=== PATIENT | female | born 1990 | race African-American/Black ===

== ENCOUNTER 2020-03-12 10:09 | Outpatient (CLI) | payer OTHER, MEDICAID, SELFPAY ==
--- NOTE | ~2020-03-12 | US_ITS ---
EXAMINATION: US OB /maternal detail DATE: 03/12/2020 11:07 INDICATION: survey TECHNIQUE: Multiple obstetric sonographic images performed. FINDINGS: No prior studies for comparison. There is a single living fetus in breech presentation. The placenta is posterior without placenta pr evia. Amniotic fluid volume is normal. cardiac activity and movement is noted with a heart rate of 152 beats per minute. The following anatomy was identified as normal: 4 chamber heart 3 vessel cord cord insertion kidneys urinary bladder stomach spine diaphragm ventricles cisterna magna cerebellum The following biometric data were obtained: BPD: 46mm corresponds to gestational age 20 weeks 0 days. Head circumference: 173 mm corresponds to gestational age 19 weeks 6 days. Abdominal circumference: 148 mm corresponds to gestational age 20 weeks days. Femur length: 31 mm corresponds to gestational age 19 weeks 5 days. Head circumference to abdominal circumference ratio: 1.17 (normal range for expected gestational age is 1.08-1.25). Estimated weight: 320 grams +/- 48 grams using Hadlock method. IMPRESSION: 1: Single living intrauterine with an estimated gestational age of 20weeks 0days by current ultrasound measurements, with an EDC of 07/30/2020 in breech presentation. 2. Normal survey. Reviewed, dictated and finalized at location A. IMPRESSION: 1: Single living intrauterine with an estimated gestational age of 20 weeks 0days by current ultrasound measurements, with an EDC of 07/30/2020 in br eech presentation. 2. Normal survey.
== END 2020-03-12 10:10 | disposition home or self-care (01) ==
LOC: ANHIMG 10:25
PROVIDERS: PCP Family Medicine; Visit Provider Obstetrics & Gynecology Gynecology
DX: Z36.89 Encounter for other specified antenatal screening (principal); Z3A.20 20 weeks gestation of pregnancy
CPT/HCPCS: 76805

== ENCOUNTER 2020-04-25 15:51 | Outpatient (CLI) | payer OTHER, MEDICAID, SELFPAY ==
--- NOTE | ~2020-04-25 | US_ITS ---
EXAMINATION: US OB follow up DATE: 04/25/2020 16:34 INDICATION: Size greater than dates during second trimester TECHNIQUE: Real-time ultrasound of the pelvis was performed. The interpreting radiologist was not pre sent for the study. COMPARISON: 03/12/2020 FINDINGS: There is a single living fetus in breech presentation. The placenta is posterior and 4.6 cm from the internal cervical os. cardiac activity and movement are noted. heart rate is 155 beats per minute (bpm). The amniotic fluid index is 17.6 cm which is normal. The following biometric data were obtained: Biparietal diameter (BPD): 6.4 cm; head circumference (HC): 23.4 cm; abdominal circumference (AC): 23 .0 cm; femur length (FL): 5.0 cm. The head circumference to abdominal circumference ratio is greater than two standard deviations below the mean. These measurements are otherwise concordant. Estimated weight is 1010 g +/- 151 g, which correlates with the 15th percentile when 07/20/2020 is used as estimated date of delivery. As single measurements, these parameters are each equal to the following estimated gestational ages w ith ranges of +/- 2 standard deviations: BPD: 25 weeks 6 days +/- 2 weeks 1 days. HC: 25 weeks 3 days +/- 2 weeks 0 days. AC: 27 weeks 3 days +/- 2 weeks 1 days. FL: 27 weeks 0 days +/- 2 weeks 1 days. estimated gestational age based solely on measurements from this exam is 26 weeks 3 days +/- 1 weeks 6 days. IMPRESSION: 1. Single living fetus in breech presentation. 2. Estimated weight is 1010 g +/- 151 g, which correlates with the 15th percentile when 020 is used as estimated date of delivery. 3. Head circumference to abdominal circumference ratio greater than two standard deviations below the mean. Reviewed, dictated and finalized at location A. IMPRESSION: 1. Single living fetus in breech presentation. 2. Estimated weight is 1010 g +/- 151 g, which correlates with the 15th p ercentile when 07/20/2020 is used as estimated date of delivery. 3. Head circumference to abdominal circumference ratio greater than two standar d deviations below the mean.
== END 2020-04-25 15:52 | disposition home or self-care (01) ==
LOC: ANHIMG 15:57
PROVIDERS: PCP Family Medicine; Visit Provider Obstetrics & Gynecology Gynecology
DX: Z36.9 Encounter for antenatal screening, unspecified (principal); Z3A.26 26 weeks gestation of pregnancy
CPT/HCPCS: 76816

== ENCOUNTER → 2020-06-27 14:35 | Outpatient (CLI) | payer OTHER, MEDICAID, SELFPAY ==
--- NOTE | ~2020-06-27 | US_ITS ---
EXAMINATION: US OB follow up DATE: 06/27/2020 15:07 INDICATION: Size greater than dates during third trimester TECHNIQUE: Real-time ultrasound of the pelvis was performed. The interpreting radiologist was not pre sent for the study. COMPARISON: None. FINDINGS: There is a single living fetus in vertex presentation. The placenta is posterior. car diac activity and movement are noted. heart rate is 143 beats per minute (bpm). The amnio tic fluid index is 11.5 cm which is normal. The following biometric data were obtained: Biparietal diameter (BPD): 8.9 cm; head circumference (HC): 31.9 cm; abdominal circumference (AC): 33 .3 cm; femur length (FL): 6.8 cm. These measurements are concordant. Estimated weight is 1944 g +/- 441 g, which correlates with the 48th percentile when 07/20/2020 is used as estimated date of delivery. As single measurements, these parameters are each equal to the following estimated gestational ages w ith ranges of +/- 2 standard deviations: BPD: 36 weeks 2 days ( 33 weeks 1 days - 39 weeks 4 days). HC: 36 weeks 0 days ( 33 weeks 0 days - 39 weeks 0 days). AC: 37 weeks 2 days ( 34 weeks 2 days - 40 weeks 2 days). FL: 35 weeks 0 days ( 32 weeks 0 days - 37 weeks 6 days). estimated gestational age based solely on measurements from this exam is 36 weeks 1 days +/- 2 weeks 4 days. IMPRESSION: 1. Single living fetus in vertex presentation. 2. Estimated weight is 1944 g +/- 441 g, which correlates with the 48th percentile when 020 is used as estimated date of delivery. 3. Normal amniotic fluid index. Reviewed, dictated and finalized at location A. IMPRESSION: 1. Single living fetus in vertex presentation. 2. Estimated weight is 1944 g +/- 441 g, which correlates with the 48th p ercentile when 07/20/2020 is used as estimated date of delivery. 3. Normal amniotic fluid index.
== END ==
PROVIDERS: Visit Provider Nurse Practitioner
DX: O36.63X0 Maternal care for excessive fetal growth, third trimester, not applicable or unspecified (principal); Z3A.36 36 weeks gestation of pregnancy
CPT/HCPCS: 76816

== ENCOUNTER 2020-07-16 13:12 | Observation (INO) | payer OTHER, MEDICAID, SELFPAY ==
--- NOTE | 2020-07-16 13:30 | OBADM ---
This patient, Renae Rosario, admitted to the OB room OB Post 116 for observation. Patient/family oriented to hospital policies and general routines including ID bracelet, bed and alarms, visiting hours, pain management, procedures, bathroom and other care routines, personal items, smoking policy, room service/diet, and visiting hours. Patient/Family are encouraged to report perceived risks to care and to ask questions if they do not understand what they are told or what they should do.
[2020-07-16 13:31] VITALS: BP 140/84; PULSE 96
[2020-07-16 13:46] VITALS: BP 144/87; PULSE 105
[2020-07-16 14:01] VITALS: BP 135/80; PULSE 104
[2020-07-16 14:16] VITALS: BP 125/85; PULSE 105
--- NOTE | 2020-07-21 14:16 | PM.OBTRLD ---
OB - Triage/Final Diagnosis Visit Information Reason for evaluation: threatened labor
== END 2020-07-16 15:30 | disposition home or self-care (01) ==
PROVIDERS: Admitting Provider Obstetrics & Gynecology Gynecology; Visit Provider Obstetrics & Gynecology Gynecology
DX: O47.9 False labor, unspecified (principal); Z3A.00 Weeks of gestation of pregnancy not specified
CPT/HCPCS: G0378; G0379

== ENCOUNTER 2020-07-17 03:50 | Inpatient (IN) | payer OTHER, MEDICAID, SELFPAY ==
[2020-07-17] VITALS (59 sets, daily range): BP systolic 100–158; BP diastolic 52–95; PULSE 67–156; RESP 16–20; TEMP 36.4–36.8; O2SAT 75–100; BMI 36.8
--- NOTE | 2020-07-17 03:50 | LDADM ---
This patient, Renae Rosario, was admitted to Labor/Delivery/Recovery 107 on 07/17/20 at 03:50. Plans for labor, pain management and were discussed with patient. Patient/family oriented to hospital policies and general routines including ID bracelet, bed and alarms, visiting hours, pain management, procedures, bathroom and other care routines, personal items, smoking policy, room service/diet and guest tray routines, infant security routines, and visiting hours. Patient/Family are encouraged to report perceived risks to care and to ask questions if they do not understand what they are told or what they should do. See OBIX for further documentation.
--- NOTE | 2020-07-17 04:22 | WPDOBADMIT ---
Obstetrics - Admit Note Admission Note: record reviewed. No pertinent additions to the history and/or any subsequent changes in the physical findings that are not consistent with the expected course of the were found. Additions to the history and/or subsequent changes in the physical findings follow. None.Here in active labor. Patient 8 cm with BBOW on arrival. Trying to place epidural now.
[2020-07-17 04:33] LABS: Basophils Percent Auto 0.4 % (0.2-1.2); Eosinophils Absolute Auto 0.1 K/mm3 (0-0.3); Hematocrit 42.5 % (37.0-47.0); Hemoglobin 15.7 g/dL (12.0-15.0); Immature Granulocyte Absolute 0.05 K/mm3 (0.00-0.031); Immature Granulocyte Percent A 0.5 % (0-0.5); Immature Platelet Fraction Pct 11.1 % (0.9-11.2); Lymphocytes Absolute Auto 2.18 K/mm3 (0.9-3.2); Lymphocytes Percent Auto 19.7 % (18.3-44.2); Mean Corpuscular HGB Conc 36.9 g/dl (32-36); Mean Corpuscular Hemoglobin 31.5 pg (26-34); Mean Corpuscular Volume 85.3 fl (80-100); Mean Platelet Volume 12.3 fl (7.4-10.4); Monocytes Percent Auto 8.7 % (2.6-8.5); Neutrophils Absolute Auto 7.8 K/mm3 (1.3-6.7); Neutrophils Percent Auto 69.7 % (45.5-73.1); Platelet Count Result 156 k/mm3 (150-375); Red Blood Count 4.98 M/mm3 (4.2-5.4); Red Cell Distribution Width 13.5 % (11.5-14.5); White Blood Count 11.1 K/mm3 (4.5-10.0)
--- NOTE | 2020-07-17 04:40 | P.PNOB_ITS ---
OB - PN: Subj Subjective Date/time seen: 07/17/20 04:40 Narrative: AROM with clear fluid Cervix /-2 OB - PN: Obj Data Labs CBC & Chem 7: 07/17/20 04:12 OB - PN A/P Time Spent With Patient Time: Total time spent is greater than 50% in coordination of care (as do cumented) at patient's floor/unit and/or counseling patient:
--- NOTE | 2020-07-17 04:41 | WPDANESEPPF ---
Anes - Initial Pre Proc Eval Procedure: labor epidural Date/Time: 07/17/20 04:41 Surgeon: Doris Acosta MD Pre Op Diagnosis: labor pain Pre Op Diagnosis: Contractions Patient Data Age: 29 Gender: F Height: 1.73 m Weight: 110 kg Last Vital Signs Temp 36.8 C 07/17/20 04:09 Pulse 95 07/17/20 04:40 BP 134/77 07/17/20 04:40 Pulse Ox 100 07/17/20 04:35 Allergies Allergy/AdvReac Type Severity Reaction Status Date / Time No Known Allergies Allergy Verified 07/01/20 14:35 Home Medications Medication Instructions Recorded Confirmed Type PNV cmb#95-ferrous fumarate-FA 1 tablet PO DAILY 07/01/20 07/16/20 History [] ergocalciferol (vitamin D2) 1,250 mcg PO WEEKLY 07/01/20 07/16/20 History [Vitamin D2] Laboratory Tests 07/17/20 07/17/20 04:12 04:12 WBC Pending RBC Pending Hgb Pending Hct Pending MCV Pending MCH Pending MCHC Pending RDW Pending Plt Count Pending MPV Pending Immature Gran % (Auto) Pending Neut % (Auto) Pending Lymph % (Auto) Pending [place] % (Auto) Pending Eos % (Auto) Pending Baso % (Auto) Pending Lymph # (Auto) Pending [place] # (Auto) Pending Eos # (Auto) Pending Baso # (Auto) Pending Abs Immat Gran (auto) Pending Absolute Neuts (auto) Pending Absolute Nucleated RBC Pending Nucleated RBC % Pending RPR Pending Patient hx anesthesia problems: none Family hx anesthesia problems: none PMFSH Family History Family History (Updated 07/01/20 @ 14:37 by Zev Camarena RN) Other Unknown family medical history Social History Social History Substance use: never Spiritual care concerns: No Anes - Eval Final PreProcedure Day of Procedure 07/17/20 04:41 Patient weight: obese ASA classification: II Anesthesia type and monitoring: regional epidural Informed Consent: The patient's anesthetic plan and its attendant risks and benefits were discussed with the patient/family/POA. Questions were solicited and answers provided to the satisfaction of the patient/family/POA.
[2020-07-17] MEDS: LACTATED RINGERS 1,000 ML 125 ML IV CONT ×2 (04:42→04:43)
[2020-07-17 04:48] LABS: Large Platelets Present; Platelet Estimate Adequate (Adequate)
--- NOTE | 2020-07-17 05:04 | PC.NURSE ---
pt states she uses Medical Marijuana topical cream on knee.
[2020-07-17] MEDS: OXYTOCIN 30 UNITS/NS 500 ML 30 UNITS/500 ML BAG 999 UNITS IV CONT (06:23)
--- NOTE | 2020-07-17 06:28 | P.PCNOB_ITS ---
OB - Delivery Note Procedure Delivery date: 07/17/20 Procedure: Intrapartal events: None Induction method: none Delivery augmentation: rupture of membranes Delivery monitor: external FHT and external uterine Route of delivery: Laceration description: None Specimen: Yes (placenta marginal insertion) Estimated blood loss (mL): 200 Anesthesia type: Epidural Disposition: PACU [place] [facility] Weeks of gestation at delivery: 38 Infant gender: Male Weight (pounds): 7 Weight (ounces): 15 presentation: vertex Placenta delivery description: Spontaneous cord vessel description: 3 Vessels score one minute: 9 score five minutes: 9
--- NOTE | 2020-07-17 06:29 | PM.OBDSVD ---
DS: Admitting Diagnosis Admitting Diagnosis Admitting Diagnosis: labor 38 4/7 wk DS: Discharge Diagnosis Discharge Diagnosis (1) (normal spontaneous vaginal delivery): Code(s): O80 - Encounter for full-term uncomplicated delivery Status: Acute OB - DS: Summary OB Procedures : Ultrasound OB Procedures Intrapartum: Spontaneous Vag Delivery OB Procedures: : None Peripartum Data Infant Delivery Method: Natural Vaginal Laceration description: None complications: none Status at Discharge Functional status at discharge: independent ambulation Overall status at discharge: patient is progressing back to baseline Time Spent with Patient Time attestation: Total time spent providing and/or coordinating discharge services: DS: Data Data Completed and Pending Labs on day of discharge: Labs from last 24 hours 07/17/20 07/17/20 07/17/20 04:12 04:12 04:12 WBC 11.1 H RBC 4.98 Hgb 15.7 H Hct 42.5 MCV 85.3 MCH 31.5 MCHC 36.9 H RDW 13.5 Plt Count 156 MPV 12.3 H Immature Gran % (Auto) 0.5 Neut % (Auto) 69.7 Lymph % (Auto) 19.7 [place] % (Auto) 8.7 H Eos % (Auto) 1.0 Baso % (Auto) 0.4 Lymph # (Auto) 2.18 [place] # (Auto) 1.0 H Eos # (Auto) 0.1 Baso # (Auto) 0.0 Abs Immat Gran (auto) 0.05 H Absolute Neuts (auto) 7.8 H Absolute Nucleated RBC 0.0 Nucleated RBC % 0.0 Platelet Estimate Adequate Large Platelets Present % Immature Plt Fraction 11.1 RPR Pending Blood Type O Positive Antibody Screen Negative Discharge Plan Discharge Attending physician on discharge: Doris Acosta Discharging Clinician: Doris Acosta Anticipated Discharge Date/Time: 07/19/20 06:30 Patient Disposition: Home, Self-Care Activity: may shower and pelvic rest Diet: regular Patient Instructions: Antibiotic Form Stand Alone Forms: General Discharge Information Follow-up/Referrals: Doris Acosta MD [Physician] - 6 Weeks Discharge Medications: Continued ergocalciferol (vitamin D2) [Vitamin D2] 1,250 mcg (50,000 unit) Capsule 1,250 mcg PO WEEKLY RF: 0 PNV cmb#95-ferrous fumarate-FA [] 28 mg iron- 800 mcg Tablet 1 tablet PO DAILY RF: 0 Date of admission: 07/17/20 03:50 Primary Care Provider: UNKNOWN,DOCTOR Admitting Provider: Doris Acosta Attending physician on admission: Doris Acosta Condition: Stable Care Plan Goals: plans condoms for control
[2020-07-17] MEDS: OXYTOCIN 30 UNITS/NS 500 ML 30 UNITS/500 ML BAG 125 UNITS IV CONT (06:53)
[2020-07-17] MEDS: MULTIVIT/MIN/PREN/FOL AC/IRON TABLET 1 TAB PO (08:04)
[2020-07-17] MEDS: IBUPROFEN 600 MG TABLET PO ×2 (08:05→19:25)
--- NOTE | 2020-07-17 09:50 | PC.NURSE ---
Patient transferred to post room #282 per wheelchair from labor and delivery. Support person present. Oriented to unit, room, information board, rooming in, admission packet and security measures. Patient verbalizes understanding.
[2020-07-17 10:54] LABS: Rapid Plasma Reagin Non-Reactive (NonReactive)
--- NOTE | 2020-07-17 11:20 | PC.NURSE ---
Consulted with patient, mother reports she wishes to breast/bottle feed for a few days, as she wants infant to receive colostrum and will switch to formula. Discussed stimulation of milk supply Reviewed feeding cues, frequencies, duration of feedings, feeding elimination flow sheet, and signs of adequate intake. Demonstrated stimulation techniques to wake for feeding. Assisted with infant to breast. Reviewed positioning/alignment in cross cradle, holding breast in U hold and guided asymmetrical latch on. Infant was able to latch correctly with first attempt. Infant nursed eagerly, with steady draws and frequent swallowing noted. Reviewed signs of a correct latch, effective nursing and suck swallow ratio. Infant was able to maintain latch without discomfort to mother. Nipple care reviewed. Instructed mother to call out for RN assistance if she is unable to latch for feeding or she has discomfort with nursing. Instructed feeding should be initiated three hours from start of last feeding or if feeding cues are noted before. Mother voiced understanding of information shared.
[2020-07-18 05:56] LABS: Hematocrit 38.6 % (37.0-47.0)
--- NOTE | 2020-07-18 07:49 | WPDANLDPN2 ---
Anes-Prog Note L&D Date/Time: 07/18/20 07:49 Comfortable throughout: labor and delivery Neuraxial method: epidural Epidural/Spinal procedure site: clean & non-tender Neuro status: Neuro function grossly intact. Cardiovascular status: normal Respiratory status: normal Airway patency: baseline Mental status: baseline Post-Op hydration status: normal Vital Signs: Last Vital Signs Temp 36.8 C 07/17/20 19:20 Pulse 90 07/17/20 19:20 Resp 16 07/17/20 19:20 BP 128/65 07/17/20 19:20 Pulse Ox 100 07/17/20 06:17 Pain score (VAS): 10/15 I/O: Intake & Output 07/17/20 07/17/20 07/18/20 15:59 23:59 07:59 Intake Total 500 Balance 500 Post-procedural complaints: none Patient feedback: Patient satisfied with anesthetic care.
[2020-07-18 08:00] VITALS: BP 134/81; BP 134/87; PULSE 70; RESP 20; TEMP 36.9; O2SAT 100
[2020-07-18] MEDS: IBUPROFEN 600 MG TABLET PO ×2 (08:22→14:04)
[2020-07-18] MEDS: MULTIVIT/MIN/PREN/FOL AC/IRON TABLET 1 TAB PO (08:22)
[2020-07-18] MEDS: DOCUSATE SODIUM 100 MG CAPSULE PO (08:22)
--- NOTE | 2020-07-18 10:00 | PC.NURSE ---
Patient was given the opportunity to view the discharge video Mother & Baby Care, The First Two Weeks and to ask questions. Patient declined viewing the video and has been given the mother/baby guide for home reference.
--- NOTE | 2020-07-18 11:04 | PM.OBPNVD ---
OB - PN: Subj Subjective Date/time seen: 07/18/20 11:04 Patient comments: no complaints and pain well controlled baby status: doing well OB - PN: Obj Data Labs CBC & Chem 7: 07/18/20 04:27 Labs: Laboratory Results - last 24 hr 07/18/20 04:27 Hgb 14.0 Hct 38.6 OB - PN A/P Plan day: 1 Plan: routine care, discharge home and follow up 6 weeks Time Spent With Patient Time: Total time spent is greater than 50% in coordination of care (as documented) at patient's floor/unit and/or counseling patient: Exam : Bimanual exam- vagina & uterus: other (Uterus firm, nt @U)
--- NOTE | 2020-07-18 11:30 | PC.NURSE ---
Mother is able to independently latch infant with appropriate positioning/alignment. She denies any nipple discomfort, is feeding as required and waking to feed if needed. has had several effective feedings in the past 24 hours, and is currently meeting outcomes for weight, output, jaundice and feeding frequencies. Mother will continue to breast/bottle feed. Mother states she feels confident to continue current feeding plan of breast/bottle at home. Stressed the importance of regular stimulation for best milk supply. Mother does not wish to pump when she bottle feeds. Reviewed transition to breast milk, signs of adequate intake, and engorgement/relief. Instructed to call ICP if intake/output less than required. Reviewed regular medications mother is taking. Information provided per Vidya. Reviewed community resources on the [facility] website and in the Mom/Baby guide. Information on outpatient services provided. Mother has no further questions at this time.
--- NOTE | 2020-07-18 15:22 | PC.NURSE ---
Self care and infant care discharge instructions given including follow up visit date and time. Mother verbalized understanding, NO questions or concerns verbalized. Very pleasant and cooperative.
[2020-07-19 11:40] VITALS: BP 134/88; PULSE 77; RESP 14; TEMP 36.6
== END 2020-07-18 16:12 | disposition home or self-care (01) | DRG 807 ==
LOC: ANHLDR 06:30 → ANHOB2 10:04
PROVIDERS: Admitting Provider Obstetrics & Gynecology Gynecology; Visit Provider Obstetrics & Gynecology Gynecology
DX: O43.123 Velamentous insertion of umbilical cord, third trimester (principal); Z37.0 Single live birth; Z3A.38 38 weeks gestation of pregnancy; O99.215 Obesity complicating the puerperium; E66.9 Obesity, unspecified
CPT/HCPCS: 36415; 85014; 85018; 85025; 85055; 86592; 86850; 86900; 86901; 88307; A9270; G0378; G0379; J2590; J2795; J7120

== ENCOUNTER → 2021-05-02 | Outpatient (CLI) | payer OTHER, MEDICAID, SELFPAY ==
--- NOTE | ~2021-05-02 | US_ITS ---
EXAMINATION: US OB <= 14 weeks fetus DATE: 05/02/2021 14:33 INDICATION: First trimester dating and viability assessment TECHNIQUE: Real-time pelvic transabdominal and transvaginal ultrasound was performed. COMPARISON: None. FINDINGS: The uterus measures 10.2 x 6.3 x 8 cm. There is an intrauterine gestational sac. There is a 1.9 x 2.1 x 0.7 cm hypoechoic area adjacent to the gestational sac. A yolk sac is identified. heart motion is identified measuring 175 beats per minute (bpm) by M-mode Doppler. The crown r ump length measures 1.8 cm , which correlates with an estimated gestational age of 8 weeks and 1 day( s) (+/-) 5 day(s). The ovaries are not visualized however no adnexal abnormality is seen. There is no free fluid in the pelvis. IMPRESSION: 1. Live intrauterine with an estimated gestational age of 8 weeks and 1 day(s) (+/-) 5 day( s) and an estimated delivery date of 12/11/2021. 2. Small subchorionic hematoma. Reviewed, dictated and finalized at location A. IMPRESSION: 1. Live intrauterine with an estimated gestational age of 8 weeks and 1 day(s) (+/-) 5 day(s) and an estimated delivery date of 12/11/2021. 2. Small subchorionic hematoma.
== END | disposition home or self-care (01) ==
LOC: MICIMG 14:15
PROVIDERS: Visit Provider Nurse Practitioner
DX: O46.91 Antepartum hemorrhage, unspecified, first trimester (principal); Z3A.01 Less than 8 weeks gestation of pregnancy
CPT/HCPCS: 76801

== ENCOUNTER → 2021-05-23 15:20 | Outpatient (CLI) | payer OTHER, MEDICAID, SELFPAY ==
--- NOTE | ~2021-05-23 | US_ITS ---
US OB limited DATE: 05/23/2021 15:35 INDICATION: Subchorionic hematoma follow-up TECHNIQUE: Real-time imaging and Doppler analysis COMPARISON: 05/02/2021 obstetrical ultrasound FINDINGS: The uterus measures 12.8 cm height, 6.9 cm anteroposterior and 9.2 cm transverse dimension. A normally shaped intrauterine gestational sac is identified. No subchorionic hematoma is identified on the current examination. pole and yolk sac are identified. Normal amount of amniotic fluid. heart rate of 184 bpm. No pelvic mass lesion or abnormal free pelvic fluid collection is detected. IMPRESSION: Resolution of small subchorionic hematoma since 05/02/2021 Reviewed, dictated and finalized at Location A. Reviewed, dictated and finalized at location A.
== END ==
PROVIDERS: Visit Provider Obstetrics & Gynecology Gynecology
DX: O36.8910 Maternal care for other specified fetal problems, first trimester, not applicable or unspecified (principal); Z3A.00 Weeks of gestation of pregnancy not specified
CPT/HCPCS: 76815

== ENCOUNTER → 2021-07-11 15:08 | Outpatient (CLI) | payer OTHER, MEDICAID, SELFPAY ==
--- NOTE | ~2021-07-11 | US_ITS ---
EXAMINATION: US OB /maternal detail EXAM DATE: 07/11/2021 15:38 INDICATION: anatomy. 2nd trimester. TECHNIQUE: Pelvic obstetrical transabdominal sonogram was performed by a technologist. There are mu ltiple grayscale and Doppler images available for interpretation. FINDINGS: There is a single fetus identified in breech presentation with a heart rate of 155 beats pe r minute. The placenta is located in the anterior position. There is no sonographic evidence of retr oplacental hemorrhage identified. There is subjectively expected amount of amniotic fluid. BIOMETRIC DATA: Biparietal diameter (BPD): 4.0 cm ----------------> 18 weeks 1 day. Head circumference (HC): 15.1 cm ----------------> 18 weeks 1 day. Abdominal circumference (AC): 13.6 cm ----------> 19 weeks 0 days. Femur length (FL): 2.6 cm --------------------------> 18 weeks 0 days. These measurements are concordant. HC/AC ratio is 1.11 (The 5th -- 95th percentile range is 1.08-1.27. Estimated weight is 243 g +/- 36 g. This is the 67th percentile when the currently reported cl inical gestation age 18 weeks 1 day, clinical estimated date of delivery (CRISTA-OPE) 3 is used. estimated gestational age based on measurements from this exam is 18 weeks 2 days, with an estimated date of delivery (CRISTA-AUA) 12/10. ANATOMIC SURVEY: Following anatomy not well visualized: Kidneys, cardiac outflow tracts. The following anatomy is identified and is sonographically normal in appearance: Cerebral ventricles Cerebellum Cavum septum pellucidum Cisterna magna Nuchal fold CTL-spine Four-chamber heart Diaphragm Stomach Kidneys Bladder Three-vessel cord Cord insertion Lips/nose IMPRESSION: 1. Single fetus in breech presentation with heart rate 155 beats per minute. 2. Estimated weight of 243 grams, 67th percentile using the currently reported clinical gestat ion age of 18 weeks 1 day, CRISTA(OPE) 3/8. 3. Visualized anatomy normal. Kidneys, cardiac outflow tracts not well visualized. Reviewed, dictated and finalized at location G. IMPRESSION: 1. Single fetus in breech presentation with heart rate 155 beats per minute. 2. Estimated weight of 243 grams, 67th percentile using the currently re ported clinical gestation age of 18 weeks 1 day, CRISTA(OPE) 12/11. 3. Visualized anatomy normal. Kidneys, cardiac outflow tracts not well v isualized.
== END ==
PROVIDERS: Visit Provider Obstetrics & Gynecology Gynecology
DX: Z36.9 Encounter for antenatal screening, unspecified (principal); Z3A.18 18 weeks gestation of pregnancy
CPT/HCPCS: 76805

== ENCOUNTER → 2021-08-07 14:16 | Outpatient (CLI) | payer OTHER, MEDICAID, SELFPAY ==
--- NOTE | ~2021-08-07 | US_ITS ---
EXAMINATION: US OB follow up EXAM DATE: 08/07/2021 14:44 INDICATION: Anatomy follow up for incomplete survey. 2nd trimester. TECHNIQUE: Pelvic obstetrical transabdominal sonogram was performed by a technologist. There are mu ltiple grayscale and Doppler images available for interpretation. Comparison is made to prior examina tion from 07/11/2021. FINDINGS: There is a single fetus identified in breech presentation with a heart rate of 153 beats pe r minute. The placenta is located in the anterior position. There is no sonographic evidence of retr oplacental hemorrhage identified. Placental margin to internal cervical os distance is 5.3 cm. There is subjectively expected amount of amniotic fluid. Kidneys are sonographically normal. Bladder normal. Four-chamber heart confusion, right and left vent ricular outflow tracts are sonographically normal. IMPRESSION: 1. Single fetus in breech presentation with heart rate 153 beats per minute. 2. Visualized sonographically normal kidneys, cardiac views completing anatomic survey. Reviewed, dictated and finalized at location A. IMPRESSION: 1. Single fetus in breech presentation with heart rate 153 beats per minute. 2. Visualized sonographically normal kidneys, cardiac views completing a natomic survey.
== END ==
PROVIDERS: Visit Provider Obstetrics & Gynecology Gynecology
DX: Z36.2 Encounter for other antenatal screening follow-up (principal); Z3A.00 Weeks of gestation of pregnancy not specified
CPT/HCPCS: 76816

== ENCOUNTER 2021-12-01 06:12 | Inpatient (IN) | payer OTHER, MEDICAID, SELFPAY ==
[2021-12-01] VITALS (75 sets, daily range): BP systolic 113–184; BP diastolic 64–160; PULSE 74–148; RESP 16–18; TEMP 36.1–37.7; O2SAT 96–100; BMI 36.6
[2021-12-01 07:00] LABS: Basophils Percent Auto 0.3 % (0.2-1.2); Eosinophils Absolute Auto 0.1 K/mm3 (0-0.3); Eosinophils Percent Auto 0.7 % (0-4.4); Hematocrit 44.3 % (37.0-47.0); Hemoglobin 16.2 g/dL (12.0-15.0); Immature Granulocyte Absolute 0.04 K/mm3 (0.00-0.031); Immature Granulocyte Percent A 0.4 % (0-0.5); Lymphocytes Absolute Auto 2.05 K/mm3 (0.9-3.2); Lymphocytes Percent Auto 19.3 % (18.3-44.2); Mean Corpuscular HGB Conc 36.6 g/dl (32-36); Mean Corpuscular Hemoglobin 31.5 pg (26-34); Mean Corpuscular Volume 86.2 fl (80-100); Mean Platelet Volume 12.2 fl (7.4-10.4); Monocytes Absolute Auto 0.7 K/mm3 (0.1-0.6); Monocytes Percent Auto 6.4 % (2.6-8.5); Neutrophils Absolute Auto 7.7 K/mm3 (1.3-6.7); Neutrophils Percent Auto 72.9 % (45.5-73.1); Platelet Count Result 135 k/mm3 (150-375); Red Blood Count 5.14 M/mm3 (4.2-5.4); Red Cell Distribution Width 14.5 % (11.5-14.5); White Blood Count 10.6 K/mm3 (4.5-10.0)
[2021-12-01] MEDS: LACTATED RINGERS 1,000 ML 125 ML IV CONT (07:02)
[2021-12-01] MEDS: OXYTOCIN 30 UNITS/NS 500 ML 30 UNITS/500 ML BAG IV CONT (07:03)
--- NOTE | 2021-12-01 07:04 | LDADM ---
This patient, Renae Rosario, was admitted to Labor/Delivery/Recovery 108 on 12/01/21 at 06:12. Plans for labor, pain management and were discussed with patient. Patient/family oriented to hospital policies and general routines including ID bracelet, bed and alarms, visiting hours, pain management, procedures, bathroom and other care routines, personal items, smoking policy, room service/diet and guest tray routines, infant security routines, and visiting hours. Patient/Family are encouraged to report perceived risks to care and to ask questions if they do not understand what they are told or what they should do. See OBIX for further documentation.
--- NOTE | 2021-12-01 08:21 | WPDOBADMIT ---
Obstetrics - Admit Note Admission Note: record reviewed. No pertinent additions to the history and/or any subsequent changes in the physical findings that are not consistent with the expected course of the were found. Additions to the history and/or subsequent changes in the physical findings follow. Here for MIL at 39 wks. Leaking this am prior to admit. ROM + weakly +. Cervix 4/70/-2 AROM with clear fluid. Continue pitocin. FHTs reactive.
[2021-12-01 08:38] LABS: Alanine Aminotransferase 13 U/L (4-35); Alkaline Phosphatase 232 U/L (38-126); Anion Gap 9 mmol/L (8-16); Aspartate Amino Transferase 19 U/L (14-36); Bilirubin,Total 0.8 mg/dL (0.2-1.3); Blood Urea Nitrogen 12 mg/dL (7-17); Calcium 8.6 mg/dL (8.4-10.2); Carbon Dioxide 21 mmol/L (22-30); Chloride 104 mmol/L (98-107); Estimated CRCL calculation 125 ml/min; Estimated Glomerular Filt Rate > 60; Glucose 115 mg/dL (65-110); Potassium 3.9 mmol/L (3.4-5.0); Sodium 134 mmol/L (137-145); Uric Acid 5.6 mg/dL (2.5-7.5)
--- NOTE | 2021-12-01 12:18 | PM.OBPRVD ---
OB - Delivery Note Procedure Delivery date: 12/01/21 Procedure: Induction method: AROM and Per Pitocin Protocol Delivery monitor: External FHT and External Uterine Route of delivery: Laceration Description: None Specimen: No Quantitative Blood Loss (ml): 100 Anesthesia type: Epidural Disposition: floor Baby Date of : 12/01/21 Weeks of gestation at delivery: 39 Infant gender: Female presentation: vertex position: Right Occiput Anterior Placenta delivery description: Spontaneous Cord Vessel Description: 3 Vessels score one minute: 9 score five minutes: 9
--- NOTE | 2021-12-01 12:19 | PM.OBPRVD ---
OB - Delivery Note Procedure Laceration Description: None Anesthesia type: Epidural Baby Date of : 12/01/21 Weeks of gestation at delivery: 39 Infant gender: Female presentation: vertex position: Right Occiput Anterior Placenta delivery description: Spontaneous Cord Vessel Description: 3 Vessels score one minute: 9 score five minutes: 9
--- NOTE | 2021-12-01 12:20 | PM.OBDSVD ---
DS: Admitting Diagnosis Discharge Date 12/02/21 Admitting Diagnosis IUP 39 wks for MIL DS: Discharge Diagnosis Discharge Diagnosis (1) (normal spontaneous vaginal delivery): Code(s): O80 - Encounter for full-term uncomplicated delivery Status: Acute (2) PIH ( induced hypertension): Code(s): O13.9 - Gestational [-induced] hypertension without significant proteinuria, unspecified trimester Status: Acute OB - DS: Summary OB Procedures : Ultrasound OB Procedures Intrapartum: Spontaneous Vag Delivery OB Procedures: : None Peripartum Data Infant Delivery Method: Natural Vaginal Laceration Description: None complications: none Status at Discharge Functional status at discharge: independent ambulation Overall status at discharge: patient is progressing back to baseline Time Spent with Patient Time attestation: Total time spent providing and/or coordinating discharge services: DS: Data Data Completed and Pending Labs on day of discharge: Labs from last 24 hours 12/01/21 12/01/21 12/01/21 08:20 06:51 06:51 WBC RBC Hgb Hct MCV MCH MCHC RDW Plt Count MPV Immature Gran % (Auto) Neut % (Auto) Lymph % (Auto) Sch[place] % (Auto) Eos % (Auto) Baso % (Auto) Lymph # (Auto) [place] # (Auto) Eos # (Auto) Baso # (Auto) Abs Immat Gran (auto) Absolute Neuts (auto) Absolute Nucleated RBC Nucleated RBC % Sodium 134 L Potassium 3.9 Chloride 104 Carbon Dioxide 21 L Anion Gap 9 BUN 12 Creatinine 0.70 Estim Creat Clear Calc 125 Estimated GFR > 60 Glucose 115 H Uric Acid 5.6 Calcium 8.6 Total Bilirubin 0.8 AST 19 ALT 13 Alkaline Phosphatase 232 H Total Protein 7.0 Albumin 4.0 RPR Pending Blood Type O Positive Antibody Screen Negative 12/01/21 06:51 WBC 10.6 H RBC 5.14 Hgb 16.2 H Hct 44.3 MCV 86.2 MCH 31.5 MCHC 36.6 H RDW 14.5 Plt Count 135 L MPV 12.2 H Immature Gran % (Auto) 0.4 Neut % (Auto) 72.9 Lymph % (Auto) 19.3 Schley % (Auto) 6.4 Eos % (Auto) 0.7 Baso % (Auto) 0.3 Lymph # (Auto) 2.05 Schley # (Auto) 0.7 H Eos # (Auto) 0.1 Baso # (Auto) 0.0 Abs Immat Gran (auto) 0.04 H Absolute Neuts (auto) 7.7 H Absolute Nucleated RBC 0.0 Nucleated RBC % 0.0 Sodium Potassium Chloride Carbon Dioxide Anion Gap BUN Creatinine Estim Creat Clear Calc Estimated GFR Glucose Uric Acid Calcium Total Bilirubin AST ALT Alkaline Phosphatase Total Protein Albumin RPR Blood Type Antibody Screen Discharge Plan Discharge Attending physician on discharge: Doris Acosta Discharging Clinician: Doris Acosta Anticipated Discharge Date/Time: 12/02/21 09:53 Patient Disposition: Home, Self-Care Activity: may shower and pelvic rest Diet: regular Patient Instructions: Antibiotic Form Stand Alone Forms: General Discharge Information Follow-up/Referrals: Doris Acosta MD [Physician] - 6 Weeks Discharge Medications: Continued ergocalciferol (vitamin D2) [Vitamin D2] 1,250 mcg (50,000 unit) Capsule 1,250 mcg PO WEEKLY RF: 0 PNV cmb#95-ferrous fumarate-FA [] 28 mg iron- 800 mcg Tablet 1 tablet PO DAILY RF: 0 Date of admission: 12/01/21 06:12 Primary Care Provider: Lazarus,Titus Bourne Admitting Provider: Doris Acosta Attending physician on admission: Doris Acosta Condition: Stable
[2021-12-01] MEDS: OXYTOCIN 30 UNITS/NS 500 ML 30 UNITS/500 ML BAG 125 UNITS IV CONT (12:33)
[2021-12-01 12:47] LABS: Amphetamine Screen Urine Negative (Negative); Barbiturate Screen Urine Negative (Negative); Benzodiazepines Screen Urine Negative (Negative); Cannabinoid Screen Urine Positive (Negative); Cocaine Screen Urine Negative (Negative); Methadone Screen Urine Negative (Negative); Opiate Screen Urine Negative (Negative); Phencyclidine Screen Urine Negative (Negative)
[2021-12-01] MEDS: IBUPROFEN 600 MG TABLET PO (19:23)
[2021-12-01] MEDS: DOCUSATE SODIUM 100 MG CAPSULE PO (19:23)
[2021-12-01] MEDS: ACETAMINOPHEN 325 MG TABLET 650 MG PO (23:28)
[2021-12-02] MEDS: IBUPROFEN 600 MG TABLET PO (03:56)
[2021-12-02 04:00] VITALS: BP 132/88; PULSE 81; RESP 16; TEMP 36.1; O2SAT 100
[2021-12-02 04:08] LABS: Hematocrit 39.3 % (37.0-47.0); Hemoglobin 14.2 g/dL (12.0-15.0)
--- NOTE | 2021-12-02 09:52 | PM.OBPNVD ---
OB - PN: Subj Subjective Date/time seen: 12/02/21 09:52 Patient comments: no complaints and pain well controlled baby status: doing well OB - PN: Obj Data Labs CBC & Chem 7: 12/02/21 03:53 12/01/21 08:20 Labs: Laboratory Results - last 24 hr 12/01/21 12/02/21 12:25 03:53 Hgb 14.2 Hct 39.3 Urine Opiates Screen Negative Urine Methadone Screen Negative Ur Barbiturates Screen Negative Ur Phencyclidine Scrn Negative Ur Amphetamine Screen Negative U Benzodiazepines Scrn Negative Urine Cocaine Screen Negative U Cannabinoids Screen Positive A OB - PN A/P Plan day: 1 Plan: routine care, discharge home and follow up 6 weeks Time Spent With Patient Time: Total time spent is greater than 50% in coordination of care (as documented) at patient's floor/unit and/or counseling patient: Exam : Bimanual exam- vagina & uterus: other (Uterus firm, nt @U)
[2021-12-02] MEDS: ACETAMINOPHEN 325 MG TABLET 650 MG PO (10:32)
[2021-12-02 10:33] VITALS: BP 146/95; PULSE 98; RESP 16; TEMP 36.1; O2SAT 100
[2021-12-02] MEDS: DOCUSATE SODIUM 100 MG CAPSULE PO (10:33)
--- NOTE | 2021-12-02 13:13 | WPDANLDPN2 ---
Anes-Prog Note L&D Date/Time: 12/02/21 13:13 Comfortable throughout: labor and delivery Neuraxial method: epidural Epidural/Spinal procedure site: clean & non-tender Neuro status: Neuro function grossly intact. Cardiovascular status: normal Respiratory status: normal Airway patency: baseline Mental status: baseline Post-Op hydration status: normal Vital Signs: Last Vital Signs Temp 36.1 C L 12/02/21 10:33 Pulse 98 12/02/21 10:33 Resp 16 12/02/21 10:33 BP 146/95 H 12/02/21 10:33 Pulse Ox 100 12/02/21 10:33 Pain score (VAS): 0 Post-procedural complaints: none Patient feedback: Patient satisfied with anesthetic care.
--- NOTE | 2021-12-02 14:59 | PC.NURSE ---
Addendum entered by Heidi Rizvi RN 12/02/21 14:59: time should be 1400 Original Note: Patient was given the opportunity to view the discharge video Mother & Baby Care, The First Two Weeks and to ask questions. Patient declined viewing the video and has been given the mother/baby guide for home reference.
[2021-12-03 08:03] LABS: Rapid Plasma Reagin Non-Reactive (NonReactive)
[2021-12-04 10:52] VITALS: BP 135/95; PULSE 96; RESP 20; TEMP 37.5; O2SAT 99
== END 2021-12-02 14:35 | disposition home or self-care (01) | DRG 807 ==
LOC: ANHLDR 12:22 → ANHOB2 14:53
PROVIDERS: Admitting Provider Obstetrics & Gynecology Gynecology; PCP Family Medicine; Visit Provider Obstetrics & Gynecology Gynecology
DX: O13.4 Gestational [pregnancy-induced] hypertension without significant proteinuria, complicating childbirth (principal); Z37.0 Single live birth; Z3A.39 39 weeks gestation of pregnancy
CPT/HCPCS: 36415; 80053; 80307; 84112; 84550; 85014; 85018; 85025; 86592; 86850; 86900; 86901; A9270; J2590; J2795; J7120

== ENCOUNTER 2021-12-04 11:45 | Inpatient (IN) | payer OTHER, MEDICAID, SELFPAY ==
[2021-12-04] VITALS (44 sets, daily range): BP systolic 138–173; BP diastolic 84–106; PULSE 87–138; RESP 18; TEMP 36.8
[2021-12-04 12:10] LABS: Basophils Percent Auto 0.4 % (0.2-1.2); Eosinophils Absolute Auto 0.2 K/mm3 (0-0.3); Hematocrit 43.7 % (37.0-47.0); Hemoglobin 16.2 g/dL (12.0-15.0); Immature Granulocyte Absolute 0.03 K/mm3 (0.00-0.031); Immature Granulocyte Percent A 0.3 % (0-0.5); Lymphocytes Percent Auto 27.5 % (18.3-44.2); Mean Corpuscular HGB Conc 37.1 g/dl (32-36); Mean Corpuscular Hemoglobin 31.8 pg (26-34); Mean Corpuscular Volume 85.7 fl (80-100); Mean Platelet Volume 11.4 fl (7.4-10.4); Monocytes Absolute Auto 0.5 K/mm3 (0.1-0.6); Monocytes Percent Auto 5.5 % (2.6-8.5); Neutrophils Absolute Auto 6.1 K/mm3 (1.3-6.7); Neutrophils Percent Auto 64.3 % (45.5-73.1); Platelet Count Result 178 k/mm3 (150-375); Red Cell Distribution Width 14.4 % (11.5-14.5); White Blood Count 9.5 K/mm3 (4.5-10.0)
[2021-12-04 12:22] LABS: Alanine Aminotransferase 18 U/L (4-35); Albumin Level 3.7 g/dL (3.5-5.1); Alkaline Phosphatase 161 U/L (38-126); Anion Gap 6 mmol/L (8-16); Aspartate Amino Transferase 22 U/L (14-36); Bilirubin,Total 0.6 mg/dL (0.2-1.3); Blood Urea Nitrogen 3 mg/dL (7-17); Calcium 8.7 mg/dL (8.4-10.2); Carbon Dioxide 24 mmol/L (22-30); Chloride 107 mmol/L (98-107); Estimated Glomerular Filt Rate > 60; Glucose 87 mg/dL (65-110); Sodium 137 mmol/L (137-145); Uric Acid 6.6 mg/dL (2.5-7.5)
--- NOTE | 2021-12-04 12:50 | PC.NURSE ---
Dr. Novoa notified of pt blood pressure. Procardia XL 30 mg ordered.
[2021-12-04] MEDS: NIFEdipine 30 MG TAB.ER.24 PO ×3 (12:53→21:15)
--- NOTE | 2021-12-04 14:15 | PC.NURSE ---
Pt blood pressure remains elevated and called to Dr. Acosta. Will give Labetolol 100 mg and repeat in one hour if no improvement. Pt advised. Pt ate lunch. Denies any headache, blurred vision or pain.
[2021-12-04] MEDS: LABETALOL HCL 100 MG TABLET PO ×3 (14:39→20:11)
[2021-12-04] MEDS: hydrOXYzine HCL 25 MG TABLET PO (17:18)
--- NOTE | 2021-12-04 21:00 | PC.NURSE ---
Addendum entered by Justina Sanchez RN 12/05/21 02:28: Patient declines any PIH symptoms and appears to be comfortable. Patient educated on all reportable symptoms. Patient verbalized understanding and agrees with plan of care. Original Note: Patient
[2021-12-04] MEDS: LABETALOL HCL INJ 100 MG/20 ML VIAL 20 MG IV PUSH (22:21)
[2021-12-05] VITALS (110 sets, daily range): BP systolic 124–181; BP diastolic 72–106; PULSE 74–130; RESP 14–20; TEMP 36.8–37.7; O2SAT 96–100; BMI 34.2
--- NOTE | 2021-12-05 07:00 | PC.NURSE ---
Pt is engorged/hard and her bra is not firm and supportive. Used abdominal band around chest to compress breasts and ice pack applied.
[2021-12-05] MEDS: WITCH HAZEL 40 PADS 1 PAD TOPICAL (07:06)
--- NOTE | 2021-12-05 07:43 | PC.NURSE ---
Dr. Acosta on unit and informed of BP's, pt denies headache, visual disturbance, and epigastric pain. No edema. DTR's 1+. Reviewed meds pt had yesterday. Discussed pt's mother had just called her when her 0700 BP was taken which makes pt feel more anxious. Orders received.
[2021-12-05] MEDS: NIFEdipine 30 MG TAB.ER.24 60 MG PO (07:59)
[2021-12-05] MEDS: hydrOXYzine HCL 25 MG TABLET PO ×3 (07:59→17:20)
--- NOTE | 2021-12-05 09:01 | PM.OBTRLD ---
OB - Triage/Final Diagnosis Visit Information Date of evaluation: 12/05/21 Reason for evaluation: other ( PIH) Comments/Additional reasons for admission: No PIH sx. Reports increased stress from parents. I have assessed the risk for this patient, Renae Rosario, and determined that she would benefit from observation care. Evaluation Laboratory results: Laboratory Tests 12/04/21 12/04/21 12:01 12:01 WBC 9.5 RBC 5.10 Hgb 16.2 H Hct 43.7 MCV 85.7 MCH 31.8 MCHC 37.1 H RDW 14.4 Plt Count 178 MPV 11.4 H Immature Gran % (Auto) 0.3 Neut % (Auto) 64.3 Lymph % (Auto) 27.5 [place] % (Auto) 5.5 Eos % (Auto) 2.0 Baso % (Auto) 0.4 Lymph # (Auto) 2.60 [place] # (Auto) 0.5 Eos # (Auto) 0.2 Baso # (Auto) 0.0 Abs Immat Gran (auto) 0.03 Absolute Neuts (auto) 6.1 Absolute Nucleated RBC 0.0 Nucleated RBC % 0.0 Sodium 137 Potassium 4.0 Chloride 107 Carbon Dioxide 24 Anion Gap 6 L BUN 3 L D Creatinine 0.70 Estim Creat Clear Calc Not Reportable Estimated GFR > 60 Glucose 87 Uric Acid 6.6 Calcium 8.7 Total Bilirubin 0.6 AST 22 ALT 18 Alkaline Phosphatase 161 H Total Protein 7.0 Albumin 3.7 Vital signs: Vital Signs - 24 hr 12/04/21 11:55 12/04/21 12:08 12/04/21 12:15 Temperature Pulse Rate 100 99 99 Respiratory Rate 18 Blood Pressure 160/94 H 166/101 H 156/98 H Pulse Oximetry 12/04/21 12:31 12/04/21 12:46 12/04/21 13:01 Temperature Pulse Rate 118 H 113 H 109 H Respiratory Rate Blood Pressure 150/101 H 145/101 H 149/95 H Pulse Oximetry 12/04/21 13:16 12/04/21 13:31 12/04/21 13:46 Temperature Pulse Rate 117 H 117 H 120 H Respiratory Rate Blood Pressure 148/90 H 145/91 H 153/92 H Pulse Oximetry 12/04/21 14:01 12/04/21 14:16 12/04/21 14:31 Temperature Pulse Rate 119 H 138 H 132 H Respiratory Rate Blood Pressure 161/100 H 172/93 H 163/100 H Pulse Oximetry 12/04/21 14:39 12/04/21 15:01 12/04/21 15:26 Temperature Pulse Rate 110 H 121 H 105 H Respiratory Rate Blood Pressure 158/98 H 155/99 H Pulse Oximetry 12/04/21 15:31 12/04/21 15:46 12/04/21 16:01 Temperature Pulse Rate 121 H 95 94 Respiratory Rate Blood Pressure 151/104 H 158/103 H 159/102 H Pulse Oximetry 12/04/21 16:06 12/04/21 16:31 12/04/21 16:53 Temperature Pulse Rate 96 102 H 88 Respiratory Rate Blood Pressure 156/99 H 145/90 H 159/103 H Pulse Oximetry 12/04/21 17:01 12/04/21 17:56 12/04/21 18:01 Temperature Pulse Rate 93 100 97 Respiratory Rate Blood Pressure 150/97 H 138/87 144/97 H Pulse Oximetry 12/04/21 18:29 12/04/21 19:01 12/04/21 19:31 Temperature Pulse Rate 113 H 119 H 119 H Respiratory Rate Blood Pressure 143/94 H 139/89 152/99 H Pulse Oximetry 12/04/21 20:00 12/04/21 20:01 12/04/21 20:06 Temperature 98.2 F Pulse Rate 113 H 98 Respiratory Rate 18 Blood Pressure 154/94 H 158/102 H Pulse Oximetry 12/04/21 20:11 12/04/21 20:31 12/04/21 20:46 Temperature Pulse Rate 98 93 90 Respiratory Rate Blood Pressure 173/98 H 149/95 H Pulse Oximetry 12/04/21 21:01 12/04/21 21:31 12/04/21 22:01 Temperature Pulse Rate 91 107 H 101 H Respiratory Rate Blood Pressure 160/106 H 151/96 H 161/86 H Pulse Oximetry 12/04/21 22:21 12/04/21 22:24 12/04/21 22:31 Temperature Pulse Rate 101 H 87 91 Respiratory Rate Blood Pressure 146/88 H 152/93 H Pulse Oximetry 12/04/21 22:41 12/04/21 22:51 12/04/21 23:01 Temperature Pulse Rate 94 97 97 Respiratory Rate Blood Pressure 152/86 H 158/94 H 139/91 H Pulse Oximetry 12/04/21 23:11 12/04/21 23:31 12/05/21 00:01 Temperature Pulse Rate 89 96 96 Respiratory Rate Blood Pressure 147/84 H 145/92 H 140/89 Pulse Oximetry 12/05/21 00:31 12/05/21 01:01 12/05/21 01:31 Temperature Pulse Rate 87 74 98 Respirat
--- NOTE | 2021-12-05 09:22 | PC.NURSE ---
Dr. Acosta informed of BP's and pt still feels anxious.
[2021-12-05] MEDS: LABETALOL HCL 100 MG TABLET 300 MG PO ×2 (09:33→18:26)
--- NOTE | 2021-12-05 10:19 | PC.NURSE ---
Pt having more breast discomfort from engorgement. Tylenol ordered. Changing ice packs as needed.
[2021-12-05] MEDS: ACETAMINOPHEN 500 MG TABLET 1000 MG PO ×2 (10:50→22:07)
--- NOTE | 2021-12-05 11:02 | PC.NURSE ---
Dr. Acosta updated on BP's and meds given. Order received for Hydralazine and consult with Hospitalist.
[2021-12-05] MEDS: hydrALAZINE HCL 20 MG/ML VIAL 5 MG IV PUSH (11:27)
--- NOTE | 2021-12-05 12:41 | PC.NURSE ---
Dr. Acosta updated on BP's, gave Tylenol for engorgement pain, but still rates as a 5 out of 10. Informed hospitalist hasn't seen pt yet. Order received for [place].
[2021-12-05] MEDS: HYDROcodone/acetaminophen (*CRX) 5-325 MG TABLET 1 TAB PO (13:02)
--- NOTE | 2021-12-05 15:08 | PC.NURSE ---
Pt states she was moving her arm during the 1500 BP of 164/100. Repeat BP is 149/96.
[2021-12-05 15:54] LABS: Add Urine Microscopic? YES; Appearance Urine Clear (Clear); Bilirubin Urine Negative (Negative); Blood Urine 1+ (Negative); Color Urine Straw (Yellow); Glucose Urine UA Negative (Negative); Ketones Urine Negative (Negative); Leukocyte Esterase Ur Negative LEU/UL (NEGATIVE); Nitrate Urine Negative (Negative); Protein Urine Negative (Negative); Specific Grav Ur 1.013 (1.001-1.035); Squamous Epithelial Cell Urine Rare /hpf (Few); Urobilinogen Urine Negative mg/dL (<2.0); WBC Urine 0-3 /hpf (0-3)
--- NOTE | 2021-12-05 16:05 | PC.NURSE ---
Pt states she was sleeping when her BP cuff inflated at 1600 startling her. BP then was 168/99. Repeat BP 147/85. BP cuff removed.
[2021-12-05] MEDS: IBUPROFEN 600 MG TABLET PO (17:15)
--- NOTE | 2021-12-05 17:20 | PC.NURSE ---
Went to give pt her Q8 hr dose of Labetalol to discover hospitalist had changed it back to q12 hrs and only an additional IV hydralazine order. Paged hospitalist.
--- NOTE | 2021-12-05 18:07 | PC.NURSE ---
Obtained cell phone number for Divya Harry from lead housekeeper. Informed Divya of pt's last BP, discussed that I was about to give her Q8 hr dose when it changed on the DEC to q12hr without the addition of any other oral hypertensive agent. Order received to change Labetalol back to q8hr.
[2021-12-05 19:47] LABS: Creatinine Urine 37.8 mg/dL
[2021-12-05 19:52] LABS: MALB Creatinine Ratio 137.8 mg/g (0-30); Microalbumin Urine Random 52.1 mg/L (0-16.7)
--- NOTE | 2021-12-05 20:14 | PC.NURSE ---
2009- Called Divya Harry PAINT STOCK CLERK- BP reviewed. order received to HOLD lisinopril until morning and will re-evaluate BP then. parameters received for lisinopril 10mg hold if SBP <120 or DBP<70. order received to HOLD procardia XL 60mg dose tonight. will continue to monitor BP and call if questions/concerns.
--- NOTE | 2021-12-05 22:01 | PM.IMCN ---
Assessment and Plan Assessment and plan (1) PIH ( induced hypertension): Code(s): O13.9 - Gestational [-induced] hypertension without significant proteinuria, unspecified trimester Status: Acute Assessment and Plan: Patient's urine does show micro albuminemia. Patient would definitely benefit from Richar inhibitor ARB. At this point time patient states she will not be breast feeding. Patient has been placed on lisinopril 10 mg daily with parameters since patient's blood pressure is now controlled on labetalol and Procardia. If okay with patient's OB it would be good for patient to be transitioned to an Richar or ARB. Thank you for the consultation and letting us participate in the care this patient. VT prophylaxis, SUP prophylaxis, and pain management is all per primary team. HPI Data of Consult Consult date: 12/05/21 Requesting Physician: Doris Acosta MD Primary Care Provider: Titus Qiu, Consult Narrative Narrative: Renae Rosario is a 30 year old female who presents to the hospital for a root she will follow-up post and was noted to have an elevated blood pressure. Patient states she was told months during her that her blood pressure is elevated and she started exercising more and she had no further trouble. This is patient's 4th child and she has never been diagnosed with high blood pressure. Hospitals have been consulted for blood pressure management. Patient denies any chest pain, shortness to breath, lightheadedness, dizziness, palpitations, or headache. Patient states her only past medical history is anxiety and a right ACL repair. Review of Systems Review of Systems: A 12 point review of systems was completed patient all pertinent positive and negative per HPI the remainder are unremarkable. [facility] Surgical History Surgical History (Updated 12/05/21 @ 22:02 by Divya Harry APRN) History of repair of anterior cruciate ligament of right knee Family History Family History Other Unknown family medical history Social History Social History Smoking status: Never smoker Second hand tobacco smoke exposure: No Substance use: current Spiritual care concerns: No Meds Home Medications and Allergies Home Medications Medication Instructions Recorded Confirmed Type PNV cmb#95-ferrous fumarate-FA 1 tablet PO DAILY 07/01/20 12/05/21 History [] ergocalciferol (vitamin D2) 1,250 mcg PO WEEKLY 07/01/20 12/05/21 History [Vitamin D2] Allergies Allergy/AdvReac Type Severity Reaction Status Date / Time No Known Allergies Allergy Verified 07/01/20 14:35 Vital Signs Vital Signs - 24 hr 12/04/21 22:21 12/04/21 22:24 12/04/21 22:31 Temperature Pulse Rate 101 H 87 91 Respiratory Rate Blood Pressure 146/88 H 152/93 H Pulse Oximetry 12/04/21 22:41 12/04/21 22:51 12/04/21 23:01 Temperature Pulse Rate 94 97 97 Respiratory Rate Blood Pressure 152/86 H 158/94 H 139/91 H Pulse Oximetry 12/04/21 23:11 12/04/21 23:31 12/05/21 00:01 Temperature Pulse Rate 89 96 96 Respiratory Rate Blood Pressure 147/84 H 145/92 H 140/89 Pulse Oximetry 12/05/21 00:31 12/05/21 01:01 12/05/21 01:31 Temperature Pulse Rate 87 74 98 Respiratory Rate Blood Pressure 152/83 H 124/91 H 153/98 H Pulse Oximetry 12/05/21 02:00 12/05/21 02:01 12/05/21 02:31 Temperature 36.9 C Pulse Rate 100 103 H Respiratory Rate 14 Blood Pressure 131/80 149/88 H Pulse Oximetry 12/05/21 03:01 12/05/21 03:31 12/05/21 04:01 Temperature Pulse Rate 100 102 H 101 H Respiratory Rate Blood Pressure 157/88 H 148/73 H 145/84 H Pulse Oximetry 12/05/21 04:31 12/05/21 05:01 12/05/21 06:01 Temperature Pulse Rate 90 99 78 Respiratory Rate Blood Pressure 152/88 H 140/72 124/80 Pulse Oximetry 12/05/21 07
[2021-12-06] VITALS (35 sets, daily range): BP systolic 126–173; BP diastolic 79–106; PULSE 73–105; RESP 18–20; TEMP 36.6–37.6; O2SAT 98–100
[2021-12-06] MEDS: LABETALOL HCL 100 MG TABLET 300 MG PO ×3 (02:17→17:53)
[2021-12-06] MEDS: IBUPROFEN 600 MG TABLET PO (04:47)
[2021-12-06] MEDS: hydrOXYzine HCL 25 MG TABLET PO ×2 (04:48→11:51)
[2021-12-06 05:05] LABS: Basophils Percent Auto 0.2 % (0.2-1.2); Eosinophils Absolute Auto 0.2 K/mm3 (0-0.3); Eosinophils Percent Auto 2.5 % (0-4.4); Hematocrit 41.4 % (37.0-47.0); Hemoglobin 15.1 g/dL (12.0-15.0); Immature Granulocyte Absolute 0.04 K/mm3 (0.00-0.031); Immature Granulocyte Percent A 0.4 % (0-0.5); Lymphocytes Absolute Auto 1.39 K/mm3 (0.9-3.2); Lymphocytes Percent Auto 14.4 % (18.3-44.2); Mean Corpuscular HGB Conc 36.5 g/dl (32-36); Mean Corpuscular Hemoglobin 31.3 pg (26-34); Mean Corpuscular Volume 85.9 fl (80-100); Monocytes Absolute Auto 0.4 K/mm3 (0.1-0.6); Monocytes Percent Auto 3.9 % (2.6-8.5); Neutrophils Absolute Auto 7.6 K/mm3 (1.3-6.7); Neutrophils Percent Auto 78.6 % (45.5-73.1); Platelet Count Result 159 k/mm3 (150-375); Red Blood Count 4.82 M/mm3 (4.2-5.4); Red Cell Distribution Width 14.1 % (11.5-14.5); White Blood Count 9.7 K/mm3 (4.5-10.0)
[2021-12-06 05:11] LABS: Alanine Aminotransferase 106 U/L (4-35); Albumin Level 3.2 g/dL (3.5-5.1); Alkaline Phosphatase 134 U/L (38-126); Anion Gap 6 mmol/L (8-16); Aspartate Amino Transferase 64 U/L (14-36); Bilirubin,Total 0.8 mg/dL (0.2-1.3); Blood Urea Nitrogen 6 mg/dL (7-17); Calcium 8.5 mg/dL (8.4-10.2); Carbon Dioxide 25 mmol/L (22-30); Chloride 109 mmol/L (98-107); Estimated CRCL calculation 139 ml/min; Estimated Glomerular Filt Rate > 60; Glucose 97 mg/dL (65-110); Potassium 4.1 mmol/L (3.4-5.0); Sodium 140 mmol/L (137-145)
--- NOTE | 2021-12-06 06:27 | PC.NURSE ---
Dr. Acosta on unit and informed of BP's and lab results. OK to give Procardia XL now.
--- NOTE | 2021-12-06 06:27 | PC.NURSE ---
2000- pt requesting fresh ice to place on engorged breasts. pt resting quietly. 2204- pt c/o pain with breast engorgement rating it a 7/10 on pain scale. Tylenol 1000mg given per pt request. ice packs refilled to ease breast pain. pt resting quietly. 0015- pt sleeping. awoke to have BP taken. no complaints. ice packs refilled. 5- pt resting quietly. labetolol 300mg po given as scheduled. refilled ice water and ice packs for pt. 0445- pt awake and on phone. BP elevated. pt teary eyed and feeling anxious. pt requesting mood pill. atarax 25mg given for anxiety. pt also requesting something for engorgement pain of 7/10. Ibuprofen 600mg given for pain. ice packs refilled.
[2021-12-06] MEDS: NIFEdipine 30 MG TAB.ER.24 60 MG PO ×2 (06:30→18:52)
--- NOTE | 2021-12-06 06:30 | PC.NURSE ---
Dr. Acosta in room and aware of last BP.
[2021-12-06] MEDS: WITCH HAZEL 40 PADS 1 PAD TOPICAL (07:11)
--- NOTE | 2021-12-06 07:50 | PC.NURSE ---
Dr. Acosta returned page and informed of BP. OK to give Lisinopril now.
[2021-12-06] MEDS: lisinopriL 10 MG TABLET PO (07:54)
--- NOTE | 2021-12-06 08:02 | PM.OBPNVD ---
OB - PN: Subj Subjective Date/time seen: 12/06/21 08:02 Patient comments: other (only complains of anxiety and Breast engorgement) baby status: doing well OB - PN: Obj Data Labs CBC & Chem 7: 12/06/21 04:45 12/06/21 04:45 Labs: Laboratory Results - last 24 hr 12/05/21 12/05/21 12/06/21 15:21 15:21 04:45 WBC 9.7 RBC 4.82 Hgb 15.1 H Hct 41.4 MCV 85.9 MCH 31.3 MCHC 36.5 H RDW 14.1 Plt Count 159 MPV 11.0 H Immature Gran % (Auto) 0.4 Neut % (Auto) 78.6 H Lymph % (Auto) 14.4 L [place] % (Auto) 3.9 Eos % (Auto) 2.5 Baso % (Auto) 0.2 Lymph # (Auto) 1.39 [place] # (Auto) 0.4 Eos # (Auto) 0.2 Baso # (Auto) 0.0 Abs Immat Gran (auto) 0.04 H Absolute Neuts (auto) 7.6 H Absolute Nucleated RBC 0.0 Nucleated RBC % 0.0 Sodium Potassium Chloride Carbon Dioxide Anion Gap BUN Creatinine Estim Creat Clear Calc Estimated GFR Glucose Uric Acid Calcium Total Bilirubin AST ALT Alkaline Phosphatase Total Protein Albumin Urine Color Straw Urine Appearance Clear Urine pH 7.0 Ur Specific [place] 1.013 Urine Protein Negative Urine Glucose (UA) Negative Urine Ketones Negative Ur Blood (Man) 1+ H Urine Nitrate Negative Urine Bilirubin Negative Urine Urobilinogen Negative Ur Leukocyte Esterase Negative Urine RBC 6-10 H Urine WBC 0-3 Ur Squamous Epith Cells Rare Ur Random Microalbumin 52.1 H Urine Creatinine 37.8 Microalb/Creat Ratio 137.8 H 12/06/21 04:45 WBC RBC Hgb Hct MCV MCH MCHC RDW Plt Count MPV Immature Gran % (Auto) Neut % (Auto) Lymph % (Auto) [place] % (Auto) Eos % (Auto) Baso % (Auto) Lymph # (Auto) [place] # (Auto) Eos # (Auto) Baso # (Auto) Abs Immat Gran (auto) Absolute Neuts (auto) Absolute Nucleated RBC Nucleated RBC % Sodium 140 Potassium 4.1 Chloride 109 H Carbon Dioxide 25 Anion Gap 6 L BUN 6 L Creatinine 0.60 L Estim Creat Clear Calc 139 Estimated GFR > 60 Glucose 97 Uric Acid 6.0 Calcium 8.5 Total Bilirubin 0.8 AST 64 H ALT 106 H Alkaline Phosphatase 134 H Total Protein 6.0 L Albumin 3.2 L Urine Color Urine Appearance Urine pH Ur Specific [place] Urine Protein Urine Glucose (UA) Urine Ketones Ur Blood (Man) Urine Nitrate Urine Bilirubin Urine Urobilinogen Ur Leukocyte Esterase Urine RBC Urine WBC Ur Squamous Epith Cells Ur Random Microalbumin Urine Creatinine Microalb/Creat Ratio OB - PN A/P Assessment and Plan (1) PIH ( induced hypertension): Code(s): O13.9 - Gestational [-induced] hypertension without significant proteinuria, unspecified trimester Status: Acute Assessment and Plan: BP's difficult to control so hospitalist consulted. BP's improved in the late evening so BP meds held without discussing with me. This am back in the severe range. Given Procardia early and started Lisinopril. Labs abnormal this am with increased LFTs and platelet drop. (2) (normal spontaneous vaginal delivery): Code(s): O80 - Encounter for full-term uncomplicated delivery Status: Acute Time Spent With Patient Time: Total time spent is greater than 50% in coordination of care (as documented) at patient's floor/unit and/or counseling patient: Exam Narrative: fundus firm , nt Abdomen-nt
--- NOTE | 2021-12-06 09:18 | PC.NURSE ---
Pt sitting up on couch holding infant. Significant other also here.
--- NOTE | 2021-12-06 11:24 | PC.NURSE ---
Dr. Acosta updated on last BP 162/98. Labetalol was given 1 hr ago. Pt's family has recently left. If next SBP is still 160 or greater- call the hospitalist.
--- NOTE | 2021-12-06 11:50 | PC.NURSE ---
Dr. Acosta informed BP 157/101. To recheck BP in 30 mins and if either SBP is 160 or > or DBP is 100 or > to call hospitalist.
--- NOTE | 2021-12-06 14:10 | PC.NURSE ---
Hospitalist Carlos Manuel Sarmiento came through and discussed pt's BP's. Still playing catch up from held doses last night. Order received for PO hydralazine with parameters for when to stop med received. Labs for in am ordered. Plan is for pt to obtain BP cuff to be able to monitor BP at home TID and keep and log for follow up with MD to monitor for when meds need to be decreased after discharge.
--- NOTE | 2021-12-06 14:16 | PM.IMCN ---
Assessment and Plan Additional Plan Assessment and plan (1) PIH ( induced hypertension): Code(s): O13.9 - Gestational [-induced] hypertension without significant proteinuria, unspecified trimester Status: Acute Assessment and Plan: - No acute Microproteinuria. - Pt. will not be . - Continue current BP medications of Labetalol 300 mg Q8 hrs, Procardia 60 mg Q12 hrs, and Lisinopril 10 mg po daily. UNTIL PATIENT'S BP HAS REACHED A LEVEL WHERE THE SBP IS NO GREATER THAN 160 AND DBP IS NO GREATER THAN 90, SHE WILL BE STARTED ON HYDRALAZINE 10 MG PO SCHEDULED. After reaching this threshold for both SBP and DBP, the scheduled Hydralazine can be discontinued. - Do not hold BP meds of Labetalol, Procardia, or Lisinopril without talking to hospitalist medicine. - Trend LFT's - Pt. educated on the need for BP cuff at home for monitoring three times daily on discharge at the same times of day including first thing in the AM before eating or moving around, same time in the afternoon daily, and then right before bedtime and take the list with her to her next follow up appointment. - If BP is stable at <160/<90, patient may discharge home from medicine standpoint with prescriptions of Procardia, Labetalol and Lisinopril. - Will reassess in AM with review of VS. Thank you for the consultation and letting us participate in the care this patient. VT prophylaxis, SUP prophylaxis, and pain management is all per primary team. HPI Data of Consult Consult date: 12/06/21 Requesting Physician: Doris Acosta MD Primary Care Provider: Titus QiuMD Consult Narrative Narrative: Renae Rosario is a 31 year old female that is being covered by Hospitalist service as a consult for assistance with management of her PIH. Her IUP delivered spontaneously at 39 weeks without complications per review of notes. Post delivery the pt. has had increased Blood pressure. She denies any related CP/dyspnea/N/V/Vision changes, and her urine has been free of microproteinuria. Her Transaminases today are elevated where they have not been before. Pt. currently has BP medications of Procardia 60 mg po Q12 hrs, Labetalol 300 mg po Q8 hrs, and Lisinopril 10 mg po daily scheduled as well as Hydralazine 10 mg IVP prn for treatment. For a period of time yesterday and into the night her BP was controlled from 1999 last night until 0200 this morning. After that though, it is noted per the nurses that her BP meds were held. As a result the patient's blood pressure has increased to 152-173/89-106. Again, pt. remains asymptomatic at this time. Review of Systems Review of Systems: A 12 point ROS was performed and is negative except for what is noted in HPI. All systems reviewed & are unremarkable except as noted in HPI and below PMFSH Surgical History Surgical History History of repair of anterior cruciate ligament of right knee Family History Family History Other Unknown family medical history Social History Social History Smoking status: Never smoker Second hand tobacco smoke exposure: No Substance use: current Spiritual care concerns: No Meds Home Medications and Allergies Home Medications Medication Instructions Recorded Confirmed Type PNV cmb#95-ferrous fumarate-FA 1 tablet PO DAILY 07/01/20 12/05/21 History [] ergocalciferol (vitamin D2) 1,250 mcg PO WEEKLY 07/01/20 12/05/21 History [Vitamin D2] Allergies Allergy/AdvReac Type Severity Reaction Status Date / Time No Known Allergies Allergy Verified 07/01/20 14:35 Vital Signs Vital Signs - 24 hr 12/05/21 14:18 12/05/21 14:23 12/05/21 14:28 Temperature Pulse Rate Respiratory Rate Blood Pressure Pulse Oximetry 100 99 100
[2021-12-06] MEDS: hydrALAZINE 10 MG TABLET PO ×2 (14:28→22:46)
--- NOTE | 2021-12-06 14:31 | PC.NURSE ---
Pt informed she will need to get a BP cuff for home use to be able to monitor BP's after discharge.
[2021-12-07] VITALS (23 sets, daily range): BP systolic 144–164; BP diastolic 89–108; PULSE 77–113; RESP 18; TEMP 36.6–37; O2SAT 99–100
[2021-12-07] MEDS: LABETALOL HCL 100 MG TABLET 300 MG PO (01:29)
[2021-12-07 05:41] LABS: Basophils Percent Auto 0.3 % (0.2-1.2); Eosinophils Absolute Auto 0.3 K/mm3 (0-0.3); Eosinophils Percent Auto 3.2 % (0-4.4); Hematocrit 42.4 % (37.0-47.0); Hemoglobin 15.3 g/dL (12.0-15.0); Immature Granulocyte Absolute 0.04 K/mm3 (0.00-0.031); Immature Granulocyte Percent A 0.5 % (0-0.5); Lymphocytes Absolute Auto 1.93 K/mm3 (0.9-3.2); Lymphocytes Percent Auto 21.7 % (18.3-44.2); Mean Corpuscular HGB Conc 36.1 g/dl (32-36); Mean Corpuscular Hemoglobin 31.5 pg (26-34); Mean Corpuscular Volume 87.4 fl (80-100); Mean Platelet Volume 10.9 fl (7.4-10.4); Monocytes Absolute Auto 0.5 K/mm3 (0.1-0.6); Monocytes Percent Auto 5.7 % (2.6-8.5); Neutrophils Absolute Auto 6.1 K/mm3 (1.3-6.7); Neutrophils Percent Auto 68.6 % (45.5-73.1); Platelet Count Result 167 k/mm3 (150-375); Red Blood Count 4.85 M/mm3 (4.2-5.4); Red Cell Distribution Width 14.3 % (11.5-14.5); White Blood Count 8.9 K/mm3 (4.5-10.0)
[2021-12-07 06:01] LABS: Alanine Aminotransferase 99 U/L (4-35); Albumin Level 3.4 g/dL (3.5-5.1); Alkaline Phosphatase 114 U/L (38-126); Anion Gap 4 mmol/L (8-16); Aspartate Amino Transferase 34 U/L (14-36); Bilirubin,Total 0.5 mg/dL (0.2-1.3); Blood Urea Nitrogen 11 mg/dL (7-17); Calcium 8.7 mg/dL (8.4-10.2); Carbon Dioxide 26 mmol/L (22-30); Chloride 109 mmol/L (98-107); Estimated CRCL calculation 120 ml/min; Estimated Glomerular Filt Rate > 60; Glucose 90 mg/dL (65-110); Potassium 4.1 mmol/L (3.4-5.0); Sodium 139 mmol/L (137-145)
--- NOTE | 2021-12-07 06:59 | P.PNOB_ITS ---
OB - PN: Subj Subjective Date/time seen: 12/07/21 06:59 Interval history: no PIH symptoms Patient comments: other ( still complains of breast engorgement) Narrative: anxiety remains high OB - PN: Obj Data Labs CBC & Chem 7: 12/07/21 05:30 12/07/21 05:30 Labs: Laboratory Results - last 24 hr 12/07/21 12/07/21 05:30 05:30 WBC 8.9 RBC 4.85 Hgb 15.3 H Hct 42.4 MCV 87.4 MCH 31.5 MCHC 36.1 H RDW 14.3 Plt Count 167 MPV 10.9 H Immature Gran % (Auto) 0.5 Neut % (Auto) 68.6 Lymph % (Auto) 21.7 [place] % (Auto) 5.7 Eos % (Auto) 3.2 Baso % (Auto) 0.3 Lymph # (Auto) 1.93 [place] # (Auto) 0.5 Eos # (Auto) 0.3 Baso # (Auto) 0.0 Abs Immat Gran (auto) 0.04 H Absolute Neuts (auto) 6.1 Absolute Nucleated RBC 0.0 Nucleated RBC % 0.0 Sodium 139 Potassium 4.1 Chloride 109 H Carbon Dioxide 26 Anion Gap 4 L BUN 11 D Creatinine 0.70 Estim Creat Clear Calc 120 Estimated GFR > 60 Glucose 90 Calcium 8.7 Total Bilirubin 0.5 AST 34 ALT 99 H Alkaline Phosphatase 114 Total Protein 7.0 Albumin 3.4 L OB - PN A/P Assessment and Plan (1) PIH ( induced hypertension): Code(s): O13.9 - Gestational [-induced] hypertension without significant proteinuria, unspecified trimester Status: Acute Assessment and Plan: labs have improved. The blood pressures remain elevated despite for blood pressure medicines. Plan to increase labetalol [id number] q.8 hours. Once blood pressures were stable consistently out of the severe range plan to discharge home (2) (normal spontaneous vaginal delivery): Code(s): O80 - Encounter for full-term uncomplicated delivery Status: Acute Plan Plan: routine care Time Spent With Patient Time: Total time spent is greater than 50% in coordination of care (as documented) at patient's floor/unit and/or counseling patient: Exam Narrative: fundus firm nontender right upper quadrant abdomen nontender
[2021-12-07] MEDS: IBUPROFEN 600 MG TABLET PO (07:01)
[2021-12-07] MEDS: NIFEdipine 30 MG TAB.ER.24 60 MG PO ×2 (07:02→18:55)
--- NOTE | 2021-12-07 07:13 | PM.IMPN ---
Progress Note: A&P Assessment and Plan (1) Situational anxiety: Code(s): F41.8 - Other specified anxiety disorders Status: Acute Assessment and Plan: - Likely acute on chronic. - Pt. speaks of lack of family support and stressors with child's health and feeling overwhelmed and wanting to talk to parents and she doesn't feel she is getting the support from them that she is looking for. - If agreeable to OB physician, recommend starting Zoloft 50 mg po daily at HS, and prn Buspar 7.5 mg po BID for acute anxiety for situational depression/anxiety as pt. may have higher risk factor for post- depression based upon my conversation with her. I also suspect her anxiety/depression may be playing a role in her HTN currently. Additional Plan Assessment and plan (1) PIH ( induced hypertension): Code(s): O13.9 - Gestational [-induced] hypertension without significant proteinuria, unspecified trimester Status: Acute Assessment and Plan: - No acute Microproteinuria. - Pt. will not be . - Continue current BP medications of Labetalol 300 mg Q8 hrs, Procardia 60 mg Q12 hrs, and Lisinopril 10 mg po daily. UNTIL PATIENT'S BP HAS REACHED A LEVEL WHERE THE SBP IS NO GREATER THAN 160 AND DBP IS NO GREATER THAN 90, SHE WILL BE STARTED ON HYDRALAZINE 10 MG PO SCHEDULED. After reaching this threshold for both SBP and DBP, the scheduled Hydralazine can be discontinued. - Current medication regimen not adequate as pt. is still having elevated pressures. Recommend changing Pt.'s Labetalol to Metoprolol Succinate 200 mg QAM which is continuous release, her pulse can handle increased dose, and dosing once daily will better ensure compliance with medication regimen at home. - Do not hold BP meds without first confirming with hospitalist medicine. - LFT's trending downward. - Pt. educated on the need for BP cuff at home for monitoring three times daily on discharge at the same times of day including first thing in the AM before eating or moving around, same time in the afternoon daily, and then right before bedtime and take the list with her to her next follow up appointment. - If BP is stable at <160/<90, patient may discharge home from medicine standpoint with prescriptions of Procardia, Metoprolol Succinate and Lisinopril. - Will reassess VS later today. Thank you for the consultation and letting us participate in the care this patient. VT prophylaxis, SUP prophylaxis, and pain management is all per primary team Time Spent With Patient Time with patient: 15 - 25 minutes Subjective Date/time seen: 12/07/21 07:13 Pt. was examined at the bedside today. She remains asymptomatic of any PIH symptoms and her LFT's are improved. Her BP remains elevated despite the medications being used. I am told by nursing staff that the pt has had an upsetting phone call this AM and I also read in previous notes that the pt. is experiencing some anxiety. In talking with pt. myself, she opens up and tells me of the lack of family support she has with her parents, and sisters and states that they are actually more judgemental. In addition, she just learned recently that her three year old is autistic and she is concerned about his health and has attempted to talk to her parents about it and there is no response from them and they will not come to see the child. This is upsetting to the patient. I acknowledged that the pt. is feeling a great deal of stress and now she has a new baby as well. I stressed the importance of taking care of herself first so that she can care for her children, and that it is very possible that she may need something to help her cope. I suggest starting an SSRI/SNRI such as Zoloft or Effexor , with potential Buspar for anxiety as needed as this pt. is at high risk for Post depression given the significant changes she is experiencing. Any resources for counseling upon discharge would also be beneficial for
[2021-12-07] MEDS: lisinopriL 10 MG TABLET PO (08:26)
[2021-12-07] MEDS: METOPROLOL SUCCINATE EXT REL 100 MG TABCR 200 MG PO (08:48)
[2021-12-07] MEDS: hydrALAZINE HCL 50 MG TABLET PO ×3 (08:48→20:29)
--- NOTE | 2021-12-07 09:08 | PC.NURSE ---
0830-- Carlos Manuel Sarmiento APN at bedside, report given, reviewed medications.
[2021-12-07] MEDS: hydrOXYzine HCL 25 MG TABLET PO ×2 (10:21→14:33)
[2021-12-07] MEDS: hydroCHLOROthiazide 25 MG TABLET PO (13:46)
--- NOTE | 2021-12-07 17:08 | PC.NURSE ---
1656--reported recent BP's and update from hospitalist to Dr Acosta.
--- NOTE | 2021-12-07 17:34 | PC.NURSE ---
1650--Received report from hospitalist-plans to keep pt through the night and possibly discharge in AM if BP's remain stable.Pt informed of this plan.
[2021-12-07] MEDS: ERGOCALCIFEROL 50,000 UNIT CAPSULE 50000 UNITS PO (18:55)
[2021-12-08] MEDS: hydrALAZINE HCL 50 MG TABLET PO ×2 (02:29→08:27)
[2021-12-08 02:30] VITALS: BP 137/87; PULSE 71; PULSE 78; RESP 16; TEMP 37; O2SAT 100
[2021-12-08 07:07] VITALS: BP 153/97; PULSE 96
[2021-12-08] MEDS: NIFEdipine 30 MG TAB.ER.24 60 MG PO (07:08)
[2021-12-08 07:14] VITALS: TEMP 37.2
--- NOTE | 2021-12-08 07:33 | PM.IMPN ---
Progress Note: A&P Additional Plan Assessment and plan (1) PIH ( induced hypertension): Code(s): O13.9 - Gestational [-induced] hypertension without significant proteinuria, unspecified trimester Status: Acute Assessment and Plan: - No acute Microproteinuria. - Pt. will not be . - LFT's stable, were previously elevated. - BP has been difficult to control during this admission, requiring multiple medications. Pt. has been given very specific guidelines for monitoring and for recording to take with her to follow up appointment. Pt. educated on the need for BP cuff at home for monitoring three times daily on discharge at the same times of day including first thing in the AM before eating or moving around, same time in the afternoon daily, and then right before bedtime and take the list with her to her next follow up appointment. - Pt. is discharged to home with prescriptions of Zestoretic (Lisinopril 10 mg and HCTZ 12.5) po daily, Procardia 60 mg po Q12 hrs, Toprol XL 200 mg po Daily, and Hydralazine 50 mg po Q6 hrs. Her BP has been refractory to these medications here, however, her BP is out of the danger zone for discharge and she is asymptomatic with no proteinuria. She is stable for discharge with VERY CLOSE FOLLOW UP ON FRIDAY OR FRIDAY THIS IS CURRENTLY FRIDAY with her log of BP's. My suspicion is that her body will correct quickly once home and in her own routine. (2) Situational anxiety: Code(s): F41.8 - Other specified anxiety disorders Status: Acute Assessment and Plan: - Likely acute on chronic. - Pt. speaks of lack of family support and stressors with child's health and feeling overwhelmed and wanting to talk to parents and she doesn't feel she is getting the support from them that she is looking for. - If agreeable to OB physician, recommend starting Zoloft 50 mg po daily at HS, and prn Buspar 7.5 mg po BID for acute anxiety for situational depression/anxiety as pt. may have higher risk factor for post- depression based upon my conversation with her. I also suspect her anxiety/depression may be playing a role in her HTN currently. Thank you very much for allowing the Hospital Medicine Team to assist in the management of your patient. It has been our pleasure and do not hesitate to reach out in the future. Time Spent With Patient Time with patient: less than 15 minutes Subjective Date/time seen: 12/08/21 07:33 This pt's VS were reviewed this morning and although the BP is still mildly elevated, it remains stable on the medications. She is asymptomatic of any CP, dyspnea, N/V/D/Change in vision/palpitations/edema. She is stable to discharge today with VERY CLOSE follow up with OB and PCP for recheck of BP and she is instructed in detail how to record her BP for presentation and further management to the physicians on follow up. Review of Systems Review of Systems: A 12 point review of symptoms was reviewed and is otherwise negative with exception of what is noted in HPI. All systems reviewed & are unremarkable except as noted in HPI and below All systems reviewed & are unremarkable except as noted in HPI and below Exam Narrative: Const: General: comfortable and no acute distress; No in distress HENMT: Mouth: Yes moist mucous membranes Eyes: General: appearance normal, both eyes and all related structures Sclera: sclerae normal Pupils: Equal, round and reactive pupils present Neck: Neck: supple and no JVD Thyroid: thyroid normal Lymphatic: lymphadenopathy not noted Resp: Effort & Inspection: normal respiratory effort Auscultation: clear to auscultation bilaterally Cardio: Rate: regular rate Rhythm: regular rhythm Heart sounds: no murmurs GI: GI Palp: Yes Soft to palpation and Yes Tenderness to palpation present (GI) Auscultation: normal bowel sounds Other: Mild generalized abdominal tenderness status/post vaginal delivery. Skin: General
--- NOTE | 2021-12-08 08:04 | PC.NURSE ---
0731-- Report given to Carlos Manuel Sarmiento APN, discussed patient VS, discharge plan discussed. 0740-- At patient bedside, discussed discharge instructions, home medications, and when to call/return to doctor.
[2021-12-08 08:27] VITALS: PULSE 80
[2021-12-08] MEDS: lisinopriL 10 MG TABLET PO (08:27)
[2021-12-08] MEDS: hydroCHLOROthiazide 25 MG TABLET PO (08:27)
[2021-12-08] MEDS: METOPROLOL SUCCINATE EXT REL 100 MG TABCR 200 MG PO (08:27)
== END 2021-12-08 08:38 | disposition home or self-care (01) | DRG 833 ==
LOC: ANHOBOP 11:47 → ANHOBPP 12:33
PROVIDERS: Nurse Practitioner Adult Health; Admitting Provider Obstetrics & Gynecology Gynecology; PCP Family Medicine; Visit Provider Nurse Practitioner Adult Health
DX: O13.3 Gestational [pregnancy-induced] hypertension without significant proteinuria, third trimester (principal); Z3A.39 39 weeks gestation of pregnancy; O99.343 Other mental disorders complicating pregnancy, third trimester; F41.8 Other specified anxiety disorders
CPT/HCPCS: 36415; 80053; 81001; 82043; 84550; 85025; 99199; A9270; J0360